=== PATIENT | male | born 1930 | race Caucasian/White ===

== ENCOUNTER → 2016-11-03 | Outpatient (CLI) | payer OTHER | LOC: FIMAGING 12:52 | PROVIDERS: ATTEND Internal Medicine Cardiovascular Disease | DX: I71.4 Abdominal aortic aneurysm, without rupture (principal); I10 Essential (primary) hypertension ==

== ENCOUNTER → 2017-04-27 | Outpatient (CLI) | payer OTHER | LOC: FIMAGING 11:19 | PROVIDERS: ATTEND Internal Medicine | DX: J43.9 Emphysema, unspecified (principal); R91.8 Other nonspecific abnormal finding of lung field; J84.10 Pulmonary fibrosis, unspecified; I25.10 Atherosclerotic heart disease of native coronary artery without angina pectoris ==

== ENCOUNTER 2017-05-03 09:26 | Day surgery (SDC) | payer OTHER ==
[2017-05-03 10:33] VITALS: PULSE 70
[2017-05-03] MEDS ORDERED: PROTAMINE SULFATE 50 MG/5 ML VIAL IVP PRN (10:44)
[2017-05-03] MEDS ORDERED: FLUMAZENIL 0.5 MG/5 ML MDV IVP PRN (10:44)
[2017-05-03] MEDS ORDERED: MEPERIDINE 25 MG/ML SYR IVP PRN (10:44)
[2017-05-03] MEDS ORDERED: HEPARIN 10,000 UNIT/10 ML MDV IVP PRN (10:44)
[2017-05-03] MEDS ORDERED: ALTEPLASE 2 MG VIAL IVP PRN (10:44)
[2017-05-03] MEDS ORDERED: MIDAZOLAM 2 MG/2 ML VIAL IVP PRN (10:44)
[2017-05-03] MEDS ORDERED: GLUCAGON HCL 1 MG VIAL IVP PRN (10:44)
[2017-05-03] MEDS ORDERED: NALOXONE HCL 0.4 MG/ML INJ IVP PRN (10:44)
[2017-05-03] MEDS ORDERED: fentaNYL 100 MCG/2 ML INJ IVP PRN (10:44)
[2017-05-03] MEDS ORDERED: NS 1,000 ML IV SCH (10:45)
--- NOTE | 2017-05-03 11:24 | PDPROPOC ---
Sedation Plan of Care Sedation Plan of Care: vital signs stable, mental status noted, patient educated of risks, benefits, alternatives, patient can tolerate sedation ASA Classification: ASA 1 Planned drugs: fentanyl, midazolam Mallampati Score: Class 1 Mallampati Reference Image: Patient passed 3-3-2 rule?: Yes
--- NOTE | 2017-05-03 11:26 | PDGENHP ---
History & Physical Chief Complaint: RLL mass History of Present Illness: RLL lung mass found on CT. Has been treated conservatively. R/O mass vs pneumonia Pertinent Past, Social, Family History: No h/o CA. Relevant Physical Exam: Lung mass/consolidation is just above hemidiaphram. Cardiorespiratory Assessment: RRR. CTA
[2017-05-03] MEDS ORDERED: hydrALAZINE 20 MG/ML VIAL ONE (12:10)
[2017-05-03] MEDS ORDERED: ONDANSETRON 4 MG/2 ML VIAL ONE (12:28)
[2017-05-03 12:56] VITALS: O2SAT 93
[2017-05-03] MEDS ORDERED: ONDANSETRON 4 MG/2 ML VIAL IVP ONE (13:27)
[2017-05-03 13:43] VITALS: TEMP 97.9
[2017-05-03] MEDS ORDERED: PANTOPRAZOLE SODIUM 40 MG VIAL IVP ONE (13:57)
[2017-05-03] MEDS ORDERED: ACETAMINOPHEN 325 MG TAB PO PRN (13:58)
[2017-05-03] MEDS ORDERED: ONDANSETRON 4 MG/2 ML VIAL IVP PRN (13:58)
[2017-05-03] MEDS ORDERED: CALCIUM CARBONATE 500 MG CHEWABLE TAB PO PRN (13:58)
--- NOTE | 2017-05-03 14:09 | PDRADPN ---
Radiology Procedure Note Date of Procedure: 05/03/17 Radiologist: Edie Jo Anesthesia: IV Sedation Pre-op Diagnosis: RLL mass Post-op Diagnosis: same Indication: Needs tissue Procedure: Attempted CT guided lung biopsy Finding(s): Patient was not able to get comfortable. Was trying to get off the table with needle in his back. Subsequent PTX, making it not possible to continue with tissue sampling as the lung was now mobile. Procedure aborted. Inf/Abcess present in the surg proc area at time of surgery?: No Complications: small PTX. Patient had transient hypotension and bradycardia after transfer to bed. STAT team called. Patient was alert and awake before leaving CT. O2 Sat never dropped below 88%, increased to 98% with 3L NC. MS intact. Patient's main complaint was stomach upset c/w his known severe GERD. CXR showed small PTX.
[2017-05-03 15:41] VITALS: BP 141/76; RESP 18
== END 2017-05-03 16:45 | disposition home or self-care (01) ==
LOC: FIMAGING 09:26
PROVIDERS: ATTEND Internal Medicine
DX: R91.1 Solitary pulmonary nodule (principal); S27.0XXA Traumatic pneumothorax, initial encounter; K21.9 Gastro-esophageal reflux disease without esophagitis; Y92.238 Other place in hospital as the place of occurrence of the external cause; Z53.09 Procedure and treatment not carried out because of other contraindication
CPT/HCPCS: J0360; J2250; J2310; J2405; J3010

== ENCOUNTER 2017-05-11 08:07 | Observation (INO) | payer OTHER ==
--- NOTE | 2017-05-11 17:20 | ASDISCHSUM ---
Discharge Information Plan Status: Medically Cleared to Leave: Discharge Date:05/11/2017 10:29 AM CM D/C Disposition: ADT D/C Disposition:Left Without Being Seen Projected Discharge Date:05/11/2017 10:29 AM Transportation at D/C: Discharge Delay Reason: Follow-Up Date:05/11/2017 10:29 AM Discharge Slot: Final Diagnosis: Placement Information Patient Contact Information Contact Name:PAMELA Relationship: Address:[address] City:[facility] Alternate Phone: State/Zip Code:[place] [address] Email: Financial Information Financial Class:Medicare Advantage Plans Primary Plan Desc:[facility] [employer] Primary Plan Number:[id number] Secondary Plan Desc: Secondary Plan Number: Assessment Information Intervention Information
== END 2017-05-11 10:29 | disposition left against medical advice (07) ==
LOC: FIMAGING 08:07 → EDSTATUS 09:13 → F3E 09:41
PROVIDERS: ADMIT Family Medicine; ATTEND Family Medicine
DX: J93.9 Pneumothorax, unspecified (principal)

== ENCOUNTER → 2017-05-17 | Outpatient (CLI) | payer OTHER ==
[~2017-05-17] MED LIST: REGADENOSON 0.4 MG/5 ML SYR IVP ONE
--- NOTE | 2017-05-17 20:31 | CPR ---
[f rep st] NONINVASIVE CARDIAC PROCEDURE REPORT DATE OF PROCEDURE: 05/17/2017 ORDERING PHYSICIAN: Otoniel Hollingsworth MD. NAME OF PROCEDURE: Lexiscan nuclear stress test. REASON FOR TEST: 1. Preop evaluation. 2. Cardiac disease. Resting EKG shows a sinus rhythm with a rate of 62. He has a first-degree AV block, right bundle bra nch block and atrial paced rhythm. Resting blood pressure 150/76, oxygen saturation 94%. He is asym ptomatic. STRESS PORTION: Lexiscan was injected rapidly, followed by saline flush. Cardiolite was then inject ed, followed by saline flush. Peak blood pressure 156/70, peak heart rate 69, oxygen saturation 97%. He did not have any EKG changes. He felt short of breath after the injection. Caffeine was given which started to help subside the symptom. RECOVERY: He did spontaneously recover. EKG remained stable. Blood pressure 160/78, recovery heart rate 61, oxygen saturation 97%. Symptoms had subsided with caffeine. At this time, he currently is stable for nuclear imaging. /[id number]/MODL
== END ==
LOC: FIMAGING 08:38
PROVIDERS: ATTEND Internal Medicine Cardiovascular Disease
PROC: C22G1ZZ Tomographic (Tomo) Nuclear Medicine Imaging of Myocardium using Technetium 99m (Tc-99m) (ICD-10-PCS; principal; 2017-05-17)
DX: R07.9 Chest pain, unspecified (principal); I25.10 Atherosclerotic heart disease of native coronary artery without angina pectoris; I42.5 Other restrictive cardiomyopathy
CPT/HCPCS: 78452; A9500; J2785

== ENCOUNTER 2017-06-01 10:03 | Day surgery (SDC) | payer OTHER ==
--- NOTE | 2017-06-01 10:34 | PDANEPAE ---
ANE History of Present Illness 87 year old male w/ PMHx of CAD (s/p ME, s/p cardiac stents on ASA & plavix; nuclear stress test in past couple weeks negative), SSS (pacemaker, atrial paced , 1st degree AV block, RBBB), HTN, PVD (mild to moderate Carotid stenosis), AI, MR, TR, COPD (documented history of hypoxemia from primary care physician, but patient does not utilize home O2), GERD, now with RLL mass presents for CT guided lung biopsy. Procedure was previously attempted with conscious sedation and patient became disruptive, moving on table and developed a pneumothorax and "stat alert" needed to be called. ANE Past Medical History - Cardiovascular History Hx Hypertension: Yes Hx Arrhythmias: Yes Hx Chest Pain: Yes Hx Coronary Artery / Peripheral Vascular Disease: Yes Hx CHF / Valvular Disease: No Hx Palpitations: No - Pulmonary History Hx COPD: Yes Hx Asthma/Reactive Airway Disease: No Hx Recent Upper Respiratory Infection: No Hx Oxygen in Use at Home: No Hx Sleep Apnea: Yes Pulmonary History Comment: Last week O2 sat was 86% for near sycopal episode - Neurologic History Hx Cerebrovascular Accident: No Hx Seizures: No Hx Dementia: Yes Neurologic History Comment: Cognitive impairment. Patient is a poor historian. provided medical history and consent for anesthesia. 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, partial denture lower, easily bruise - Chronic Pain History Chronic Pain: No - Surgical History Prior Surgeries: Cholecystectomy, Pacemaker, colonoscopy ANE Review of Systems Review of systems is: negative Review of Systems: - Exercise capacity Exercise capacity: >=4 METS METS (RN): 4 METS ANE Patient History - Allergies Allergies/Adverse Reactions: No Known Allergies Allergy (Unverified 04/28/17 16:36) - Home Medications Home medications: home medication list seen and reviewed Home Medications: Aspirin 81mg (*) 81 mg PO DAILY 04/28/17 [Last Taken 04/28/17 09:00] Atorvastatin Calcium 80 mg PO DAILY 04/28/17 [Last Taken 04/28/17 09:00] Carvedilol 12.5 mg PO DAILY 04/28/17 [Last Taken 05/03/17] Clopidogrel 75 mg PO DAILY 04/28/17 [Last Taken 04/27/17] Zestril 20 mg (*) 20 mg PO DAILY 04/28/17 [Last Taken 05/03/17] - NPO status NPO Status: no food or drink >8 hours - Anes Hx Anes Hx: no prior problems - Smoking Hx Smoking Status: Former smoker Marijuana use: No - Family Anes Hx Family Anes Hx: neg - N/A Family Hx Anesthesia Complications: no ANE Labs/Vital Signs - Vital Signs Vital Signs: reviewed preoperatively; see RN documention for details Height: 180.34 cm Weight: 82.1 kg ANE Physical Exam - Airway Neck exam: decreased ROM Mallampati Score: Class 2 Mouth exam: normal dental/mouth exam - Pulmonary Pulmonary: no respiratory distress - Cardiovascular Cardiovascular: regular rate and rhythym - ASA Status ASA Status: III ANE Anesthesia Plan Anesthesia Plan: general endotracheal anesthesia Total IV Anesthesia: No
[2017-06-01] MEDS ORDERED: ROCURONIUM 50 MG/5 ML VIAL ONE (10:51)
[2017-06-01] MEDS ORDERED: PROPOFOL/EMULSION 500 MG/50 ML BOTTLE IV ONE (10:51)
[2017-06-01] MEDS ORDERED: SUCCINYLCHOLINE CHLORIDE 200 MG/10 ML SYR IVP ONE (10:51)
[2017-06-01] MEDS ORDERED: fentaNYL 100 MCG/2 ML INJ ONE (10:52)
[2017-06-01] MEDS ORDERED: FLUMAZENIL 0.5 MG/5 ML MDV IVP PRN (10:55)
[2017-06-01] MEDS ORDERED: GLUCAGON HCL 1 MG VIAL IVP PRN (10:55)
[2017-06-01] MEDS ORDERED: MIDAZOLAM 2 MG/2 ML VIAL IVP PRN (10:55)
[2017-06-01] MEDS ORDERED: PROTAMINE SULFATE 50 MG/5 ML VIAL IVP PRN (10:55)
[2017-06-01] MEDS ORDERED: NALOXONE HCL 0.4 MG/ML INJ IVP PRN ×2 (10:55→13:37)
[2017-06-01] MEDS ORDERED: HEPARIN 10,000 UNIT/10 ML MDV IVP PRN (10:55)
[2017-06-01] MEDS ORDERED: fentaNYL 100 MCG/2 ML INJ IVP PRN ×2 (10:55→13:37)
[2017-06-01] MEDS ORDERED: MEPERIDINE 25 MG/ML SYR IVP PRN (10:55)
[2017-06-01] MEDS ORDERED: ALTEPLASE 2 MG VIAL IVP PRN (10:55)
[2017-06-01] MEDS ORDERED: NS 1,000 ML IV SCH (11:00)
[2017-06-01 11:04] VITALS: PULSE 67
--- NOTE | 2017-06-01 12:02 | PDGENHP ---
History & Physical Chief Complaint: RT LUNG MASS/CONSOLIDATION History of Present Illness: ATTEMPTED BIOPSY ONE MONTH AGO WITHOUT SUCCESS. SMALL PTX. REPEAT BIOPSY. CHEST TUBE PLACEMENT WOULD BE NEEDED Pertinent Past, Social, Family History: GROWING RLL MASS/CONSOLIDATION. Relevant Physical Exam: N/A Cardiorespiratory Assessment: RRR. CTA
[2017-06-01] MEDS ORDERED: LR 500 ML IV PRN (13:37)
[2017-06-01] MEDS ORDERED: ONDANSETRON 4 MG/2 ML VIAL IVP PRN (13:37)
[2017-06-01] MEDS ORDERED: LABETALOL HCL 5 MG/ML 20 ML MDV IVP PRN (13:37)
[2017-06-01] MEDS ORDERED: PHENYLEPHRINE 10 MG/ML SDV ONE (14:23)
--- NOTE | 2017-06-01 14:38 | PDRADPN ---
Radiology Procedure Note Date of Procedure: 06/01/17 Radiologist: Edie Jo Anesthesia: GET(General Endotracheal) Pre-op Diagnosis: RLL LUNG MASS Post-op Diagnosis: SAME Indication: PERSISTANT GROWING MASS Procedure: CT GUIDED LUNG BX Finding(s): CORES OBTAINED Inf/Abcess present in the surg proc area at time of surgery?: No EBL: Minimal Complications: NONE
--- NOTE | 2017-06-01 15:22 | POSTANESTH ---
Post Anesthetic Evaluation Cardiovascular Status: Normal, Stable, Similar to Pre-Op Cond Respiratory Status: Normal, Stable, Similar to Pre-op Cond. Level of Consciousness/Mental Status: Can Participate in Eval, Alert and Oriented Pain Control: Adequate, Prn Tx Ordered Nausea/Vomiting Control: Adequate, Prn Tx Ordered Complications Possibly Related to Anesthesia: None Noted
[2017-06-01 16:05] VITALS: BP 157/84; RESP 26; O2SAT 93
[2017-06-01 16:12] VITALS: TEMP 98.2
== END 2017-06-01 16:12 | disposition home or self-care (01) ==
LOC: FIMAGING 10:03
PROVIDERS: ATTEND Internal Medicine
PROC: 0BBF3ZX Excision of Right Lower Lung Lobe, Percutaneous Approach, Diagnostic (ICD-10-PCS; principal; 2017-06-01 13:31)
DX: C78.01 Secondary malignant neoplasm of right lung (principal); S27.0XXA Traumatic pneumothorax, initial encounter; Y92.238 Other place in hospital as the place of occurrence of the external cause; I25.10 Atherosclerotic heart disease of native coronary artery without angina pectoris; K21.9 Gastro-esophageal reflux disease without esophagitis; J84.10 Pulmonary fibrosis, unspecified; I10 Essential (primary) hypertension; I25.2 Old myocardial infarction; I08.0 Rheumatic disorders of both mitral and aortic valves; J44.9 Chronic obstructive pulmonary disease, unspecified; I73.9 Peripheral vascular disease, unspecified; E03.9 Hypothyroidism, unspecified; Z79.82 Long term (current) use of aspirin; Z87.891 Personal history of nicotine dependence; Z95.5 Presence of coronary angioplasty implant and graft; Z95.0 Presence of cardiac pacemaker
CPT/HCPCS: J0330; J2370; J2704; J3010